=== PATIENT | female | born 1975 | race Caucasian/White ===

== ENCOUNTER → 2017-06-12 | Outpatient (CLI) | payer BC ==
[~2017-06-12] MED LIST: PREN-96 PO
== END | disposition home or self-care (01) ==
LOC: LAB 11:17
PROVIDERS: ATTEND Internal Medicine Cardiovascular Disease
DX: E03.9 Hypothyroidism, unspecified (principal)
CPT/HCPCS: 36415; 84439; 84443

== ENCOUNTER → 2017-07-10 | Outpatient (CLI) | payer BC ==
[~2017-07-10] VITALS: Ht 170.2 cm; Wt 59.4 kg
[~2017-07-10] MED LIST changes: +SUCCINYLCHOLINE CHLORIDE 20 MG/ML 10ML VIAL IV ONE
== END | disposition home or self-care (01) ==
LOC: Rad HDHVI 09:02
PROVIDERS: ATTEND Internal Medicine Cardiovascular Disease
DX: I47.1 Supraventricular tachycardia (principal); I48.3 Typical atrial flutter; R00.2 Palpitations; E03.9 Hypothyroidism, unspecified
CPT/HCPCS: 78452; 93017; 93306; 96374; A9500